=== PATIENT | female | born 1950 | race Caucasian/White ===

== ENCOUNTER 2017-01-10 12:16 | Emergency (ER) | payer MEDICARE, MEDICAID ==
[~2017-01-10] VITALS: Ht 162.6 cm; Wt 70.0 kg
[~2017-01-10 12:16] MED LIST: AMLO10TA55 PO; ASPI-1093 PO; FURO40TA5 PO; POTA20TA11 PO; SIMV20TA6 PO
[2017-01-10] MEDS ORDERED: METF500T4 PO (12:19)
[2017-01-10 12:31] LABS: GLUCOSE,POINT OF CARE 152 MG/DL (70-110)
[2017-01-10 13:22] LABS: BASOPHILS % (AUTO) 0.2 % (0.0-2.0); EOSINOPHILS % (AUTO) 0.1 % (1.0-6.0); HEMATOCRIT 37.7 % (36-46); HEMOGLOBIN 12.4 g/dL (12.0-16.0); LYMPHOCYTES # (AUTO) 1.6 K/uL (1.0-4.8); LYMPHOCYTES % (AUTO) 28.9 % (22.0-44.0); MEAN CORPUSCULAR HEMOGLOBIN 27.4 pg (26.0-34.0); MEAN CORPUSCULAR HGB CONC 32.8 G/dL (31.0-37.0); MEAN CORPUSCULAR VOLUME 83 fL (80-100); MONOCYTES # (AUTO) 0.4 K/uL (0.1-1.0); MONOCYTES % (AUTO) 7.1 % (2.0-9.0); NEUTROPHILS # (AUTO) 3.6 K/uL (1.8-7.7); NEUTROPHILS % (AUTO) 63.7 % (40.0-70.0); PLATELET COUNT (AUTO) 253 K/uL (150-450); RED BLOOD CELL COUNT(AUTO) 4.52 MIL/uL (4.00-5.20); RED CELL DISTRIBUTION WIDTH 14.2 % (11.5-14.5); WHITE BLOOD COUNT (AUTO) 5.7 K/uL (4.5-11.0)
[2017-01-10 13:31] LABS: CALCIUM, TOTAL 9.1 mg/dL (8.8-10.5); CREATININE 1.07 mg/dL (0.60-1.30); POTASSIUM 3.3 mmol/L (3.5-5.1)
[2017-01-10 13:37] LABS: ALBUMIN 3.9 g/dL (3.4-5.0); BILIRUBIN,TOTAL 0.4 mg/dL (0.1-1.0); TOTAL PROTEIN, SERUM 7.6 g/dL (6.4-8.2)
[2017-01-10] MEDS ORDERED: SODIUM CHLORIDE 0.9% 500 ML IV ONE (14:00)
[2017-01-10 15:06] VITALS: BP 124/55
[2017-01-10 15:55] LABS: APPEARANCE,URINE CLEAR (CLEAR); GLUCOSE, URINE (UA) NEGATIVE (NEGATIVE); KETONES,URINE NEGATIVE (NEGATIVE); LEUKOCYTE ESTERASE ,URINE NEGATIVE (NEGATIVE); OCCULT BLOOD,URINE NEGATIVE (NEGATIVE); PROTEIN,URINE NEGATIVE (NEGATIVE)
[2017-01-10 16:03] LABS: ADD UA MICROSCOPIC NO
== END 2017-01-10 15:08 | disposition home or self-care (01) ==
LOC: EMS 12:18
DX: E86.0 Dehydration (principal); R19.7 Diarrhea, unspecified; E11.9 Type 2 diabetes mellitus without complications; I10 Essential (primary) hypertension; E78.00 Pure hypercholesterolemia, unspecified; Z79.82 Long term (current) use of aspirin
CPT/HCPCS: 36415; 80053; 81003; 82962; 83880; 84484; 85025; 93005; 99285; J7040

== ENCOUNTER 2019-01-11 09:52 | Emergency (ER) | payer MEDICARE, MEDICAID ==
[~2019-01-11] VITALS: Ht 157.5 cm; Wt 72.7 kg
[~2019-01-11 09:52] MED LIST changes: -ASPI-1093 PO; +ASPI-1182 PO; +METF-960 PO
[2019-01-11 09:53] VITALS: BP 137/72
== END 2019-01-11 13:15 | disposition left against medical advice (07) ==
LOC: EMS 09:52
DX: R05 Cough (principal); E11.9 Type 2 diabetes mellitus without complications; E78.00 Pure hypercholesterolemia, unspecified; I10 Essential (primary) hypertension; Z53.21 Procedure and treatment not carried out due to patient leaving prior to being seen by health care provider